=== PATIENT | male | born 1950 | race Caucasian/White ===

== ENCOUNTER 2019-12-01 11:41 | Emergency (ER) | payer OTHER, MEDICARE ==
--- NOTE | 2019-12-01 12:42 | EDM.PDOC ---
ED HPI GENERAL MEDICAL PROBLEM - General Chief Complaint: Respiratory Problem Stated Complaint: RESPIRATORY ISSUES Time Seen by Provider: 12/01/19 12:40 - History of Present Illness INITIAL COMMENTS - FREE TEXT/NARRATIVE: 69-year-old male presents the emergency room with shortness of breath. Patient was [facility] from [facility] because he was not breathing right. The patient has had a worsening cough over the last several days. He was started on Zithromax Sunday at the [facility] and he thinks his cough is actually doing a little bit better but he has some intermittent chest pain. This is left-sided does not radiate and when it occurs does not seem to cause worsening shortness of breath. Patient is unaware if activity makes his pain worse or brings it on. - Related Data Allergies Allergy/AdvReac Type Severity Reaction Status Date / Time No Known Allergies Allergy Verified 12/01/19 11:54 Home Meds: Home Meds Azithromycin [Zithromax] 1 tab PO DAILY 12/01/19 [History] Past Medical History Cardiovascular History: Reports: High Cholesterol Respiratory History: Reports: COPD Gastrointestinal History: Reports: GERD, Other (See Below) Other Gastrointestinal History: Junior's esophagus - Past Surgical History GI Surgical History: Reports: Other (See Below) Other GI Surgeries/Procedures: surgery to esophagus Social & Family History - Tobacco Use Smoking Status *Q: Current Every Day Smoker Years of Tobacco use: 40 Packs/Tins Daily: 1 - Caffeine Use Caffeine Use: Reports: None - Recreational Drug Use Recreational Drug Use: No ED ROS GENERAL - Review of Systems Review Of Systems: See Below Constitutional: Reports: No Symptoms HEENT: Reports: Rhinitis Respiratory: Reports: Cough, Sputum Cardiovascular: Reports: No Symptoms Endocrine: Reports: No Symptoms GI/Abdominal: Reports: No Symptoms : Reports: No Symptoms Musculoskeletal: Reports: No Symptoms Skin: Reports: No Symptoms ED EXAM, GENERAL - Physical Exam Exam: See Below Exam Limited By: No Limitations General Appearance: Alert, No Apparent Distress Ears: Other (Left tympanic membrane is normal right is not visualized because of cerumen external ears and canals otherwise normal) Nose: Normal Inspection, Normal Mucosa, No Blood Throat/Mouth: Normal Inspection, Normal Lips, Normal Gums, Normal Oropharynx, Normal Voice, No Airway Compromise, Other (Missing most of his teeth but no acute changes noted). No: Normal Teeth Head: Atraumatic, Normocephalic Neck: Normal Inspection, Supple, Non-Tender, Full Range of Motion Respiratory/Chest: No Respiratory Distress, Lungs Clear, Normal Breath Sounds Cardiovascular: Regular Rate, Rhythm, No Edema, No Murmur GI/Abdominal: Normal Bowel Sounds, Soft, Non-Tender EKG INTERPRETATION EKG Date: 12/01/19 Rhythm: Other (Bradycardia rate 51) Molt: LAD-Left Molt Deviation P-Wave: Present QRS: Other (Interventricular conduction delay) ST-T: Other (Specific nondiagnostic changes) QT: Normal Comparison: NA - No Prior EKG Course - Vital Signs Last Recorded V/S: Last Vital Signs Temp 36.6 C 12/01/19 11:50 Pulse 68 12/01/19 11:50 Resp 18 12/01/19 11:50 BP 140/61 12/01/19 11:50 Pulse Ox 92 L 12/01/19 11:50 - Orders/Labs/Meds Orders: Active Orders 24 hr Category Date Time Status EKG Documentation Completion [RC] STAT Care 12/01/19 12:55 Active RT Post Treatment Assessment [RC] Click to Edit Care 12/01/19 12:57 Active RT Pre-Treatment Assessment [RC] Click to Edit Care 12/01/19 12:57 Active Labs: Laboratory Tests 12/01/19 12/01/19 Range/Units 13:20 13:20 WBC 11.54 H (4.23-9.07) K/mm3 RBC 4.87 (4.63-6.08) M/mm3 Hgb 14.6 (13.7-17.5) gm/dl Hct 42.3 (40.1-51.0) % MCV 86.9 (79.0-92.2) fl MCH 30.0 (25.7-32.2) pg MCHC 34.5 (32.2-35.5) g/dl RDW Std Deviation 42.6 (35.1-43.9) fL Plt Count 313 (163-337) K/mm3 MPV 9.1 L (9.4-12.3) fl Neutrophils % (Manual) 53 (40-60) % Band Neutrophils % 0 (0-10) % Lymphocytes % (Manual) 36 (20-40) % Atypical Lymphs % 0 % Monocytes % (Manual) 8 (2-10) % Eosinophils % (Manual) 3 (0.8-7.0) % Basophils % (Manual) 0 L (0.2-1.2) Platelet Estimate Adequate RBC Morph Comment Normal Sodium 140 (136-145) mEq/L Potassium 4.1 (3.5-5.1) mEq/L Chloride 103 (98-107) mEq/L Carbon Dioxide 25 (21-32) mEq/L Anion Gap 16.1 H (5-15) BUN 16 (7-18) mg/dL Creatinine 0.9 (0.7-1.3) mg/dL Est Cr Clr Drug Dosing 73.89 mL/min Estimated GFR (MDRD) > 60 (>60) mL/min BUN/Creatinine Ratio 17.8 (14-18) Glucose 93 (80-115) mg/dL Calcium 9.0 (8.5-10.1) mg/dL Total Bilirubin 0.5 (0.2-1.0) mg/dL AST 28 (15-37) U/L ALT 53 (16-63) U/L Alkaline Phosphatase 77 (46-116) U/L Troponin I < 0.017 (0.00-0.056) ng/mL Total Protein 7.7 (6.4-8.2) g/dl Albumin 3.9 (3.4-5.0) g/dl Globulin 3.8 gm/dL Albumin/Globulin Ratio 1.0 (1-2) Meds: Medications Discontinued Medications Generic Name Dose Route Start Last Admin Trade Name Freq PRN Reason Stop Dose Admin Albuterol 0 gm 12/01/19 12:57 12/01/19 13:41 Proventil Hfa INH 12/01/19 12:58 2 puff ONETIME ONE Administration - Re-Assessments/Exams Free Text/Narrative Re-Assessment/Exam: 12/01/19 13:08 Nursing did put in a portable chest x-ray before I saw the patient I do not see any abnormality on this. We will start him on albuterol MDI await labs. 12/01/19 15:06 Bit of improvement with the albuterol. Labs nondiagnostic. Will discharge at this point Departure - Departure Time of Disposition: 15:06 Disposition: DC/Tfer to Hospice - Home 50 Clinical Impression: Bronchitis, Chest pain, atypical - Discharge Information Referrals: Mckayla Lucas MD [Primary Care Provider] - Forms: ED Department Discharge Additional Instructions: Return to the emergency room with any questions problems or worsening symptoms. Finish up your Zithromax, the antibiotic. Use the inhaler 2 puffs every 4 hours while awake. Follow-up with the [facility] clinic and discuss whether you need a heart stress test. Sepsis Event Note - Evaluation Sepsis Screening Result: No Definite Risk - Focused Exam Vital Signs: Vital Signs Temp Pulse Resp BP Pulse Ox 12/01/19 11:50 36.6 C 68 18 140/61 92 L Date Exam was Performed: 12/01/19 Time Exam was Performed: 15:06 - My Orders Last 24 Hours: My Active Orders 12/01/19 12:55 EKG Documentation Completion [RC] STAT 12/01/19 12:57 RT Post Treatment Assessment [RC] Click to Edit RT Pre-Treatment Assessment [RC] Click to Edit - Assessment/Plan Last 24 Hours: My Active Orders 12/01/19 12:55 EKG Documentation Completion [RC] STAT 12/01/19 12:57 RT Post Treatment Assessment [RC] Click to Edit RT Pre-Treatment Assessment [RC] Click to Edit
--- NOTE | 2019-12-01 12:54 | CR ---
Chest: Portable view of the chest was obtained. Comparison: Prior chest x-ray of 06/03/11. Heart size and mediastinum are normal. Lungs are clear and show no acute parenchymal change. Bony structures are grossly intact. Impression: 1. Nothing acute is seen on portable chest x-ray. Diagnostic code #1 This report was dictated in [place] Standard Time
[2019-12-01] MEDS ORDERED: Albuterol 6.7 GM Inhaler INH ONE (12:57)
[2019-12-01 16:40] VITALS: BP 136/66; PULSE 64
== END 2019-12-01 15:10 | disposition hospice, home (50) ==
LOC: JD.ED 11:41
DX: J40 Bronchitis, not specified as acute or chronic (principal); F17.210 Nicotine dependence, cigarettes, uncomplicated
CPT/HCPCS: 36415; 71045; 80053; 84484; 85007; 85027; 93005; 99285; A9270; 93010; 99283

== ENCOUNTER 2020-02-10 08:47 | Day surgery (SDC) | payer OTHER, MEDICARE ==
--- NOTE | 2020-02-10 08:00 | PCM.HP.2 ---
H&P History of Present Illness - General Date of Service: 02/10/20 Admit Problem/Dx: GERD - History of Present Illness Initial Comments - Free Text/Narative: Mr. Reina is a 69 yo man referred from the [place] system regarding his next screening colonoscopy. His last was 10 years ago in [place] and reportedly no abnormalities were noted. He has no current lower GI complaints or concerns. His history is significant for achalasia s/p laparoscopic Heller myotomy with Justin fundoplication in 2009. This helped significantly with symptoms of dysphagia. However, [place] paperwork faxed to us indicates that the patient also has documented Junior esophagus. No upper GI evaluation has been performed in the past 10 years, and the patient does not take any antacid medication. On review, he reports dysphagia and regurgitation with more solid foods and he has to be careful with what he eats. He denies unintentional weight loss. He has a significant smoking history, 1 ppd, and was recently seen in the ER here regarding URI symptoms last month. He completed a course of azithromycin and symptoms have since resolved. He takes no medications for COPD. Recorded: [id number] 01:33PM Recorded: [id number] 01:31PM Weight 210 lb 210 lb BMI Calculated 33.9 33.9 BSA Calculated 2.04 2.04 Temperature 98.7 F Heart Rate 64 Respiration 20 Systolic 149 Diastolic 67 Pain Scale 0 - Related Data Allergies/Adverse Reactions: Allergies Allergy/AdvReac Type Severity Reaction Status Date / Time No Known Allergies Allergy Verified 02/09/20 13:17 Home Medications: Home Meds Mirtazapine [Remeron] 30 mg PO DAILY 02/09/20 [History] Past Medical History HEENT History: Reports: Impaired Vision Cardiovascular History: Reports: High Cholesterol Respiratory History: Reports: COPD, Sleep Apnea Gastrointestinal History: Reports: GERD, Other (See Below) Other Gastrointestinal History: Junior's esophagus, ACHALASIA TO ESOPHAGUS Genitourinary History: Reports: None CAT AND DOG BATHER History: Reports: None Neurological History: Reports: None Psychiatric History: Reports: None Endocrine/Metabolic History: Reports: Obesity/BMI 30+, Vitamin D Deficiency Hematologic History: Reports: None Immunologic History: Reports: None Oncologic (Cancer) History: Reports: None Dermatologic History: Reports: None - Past Surgical History Head Surgeries/Procedures: Reports: None Respiratory Surgical History: Reports: None GI Surgical History: Reports: Colonoscopy, EGD, Other (See Below) Other GI Surgeries/Procedures: surgery to esophagus Female Surgical History: Reports: None Male Surgical History: Reports: None Endocrine Surgical History: Reports: None Neurological Surgical History: Reports: None Musculoskeletal Surgical History: Reports: None Dermatological Surgical History: Reports: None Social & Family History - Tobacco Use Smoking Status *Q: Current Every Day Smoker Years of Tobacco use: 35 Packs/Tins Daily: 1 - Caffeine Use Caffeine Use: Reports: Soda - Recreational Drug Use Recreational Drug Use: No Drug Use in Last 12 Months: No H&P Review of Systems - Review of Systems: Review Of Systems: See Below General: Reports: No Symptoms HEENT: Reports: No Symptoms Pulmonary: Reports: No Symptoms Cardiovascular: Reports: No Symptoms Gastrointestinal: Reports: No Symptoms Genitourinary: Reports: No Symptoms Musculoskeletal: Reports: No Symptoms Skin: Reports: No Symptoms Psychiatric: Reports: No Symptoms Neurological: Reports: No Symptoms Hematologic/Lymphatic: Reports: No Symptoms Immunologic: Reports: No Symptoms Exam - Exam Exam: See Below - Exam General: Alert, Oriented HEENT: Conjunctiva Clear Neck: Supple Lungs: Clear to Auscultation Cardiovascular: Regular Rate GI/Abdominal Exam: Normal Bowel Sounds (Male) Exam: No Hernia Rectal (Males) Exam: Normal Exam Back Exam: Normal Inspection Extremities: Normal Inspection Skin: Warm, Dry Neuro Extensive - Mental Status: Alert, Oriented x3 Psychiatric: Alert, Normal Affect *Q Meaningful Use (ADM) - VTE Risk Assess *Q Each Risk Factor Represents 2 Points: Age 60 - 74 Years Total Score 2 Point Risk Factors: 2 Problem List Initiated/Reviewed/Updated: Yes Orders Last 24hrs: Active Orders 24 hr Category Date Time Status Peripheral IV Care [RC] . DIRECTED Care 02/10/20 07:00 Active Verify Patient Consent Obtain [RC] ASDIRECTED Care 02/10/20 07:00 Active Lactated Ringers [Ringers, Lactated] 1,000 ml Med 02/10/20 07:00 Active IV ASDIRECTED Lidocaine 1%/Sod Bicarbonate [Buffered Lidocaine 1% in Med 02/10/20 07:00 Active NS 8.4%] 0.25 ml IDERM ONETIME PRN Sodium Chloride 0.9% [Saline Flush] Med 02/10/20 07:00 Active 10 ml FLUSH ASDIRECTED PRN Medication Administration Instruction [OM.PC] Routine Oth 02/10/20 07:00 Ordered Peripheral IV Insertion Adult [OM.PC] Routine Oth 02/10/20 07:00 Ordered Medication Orders Lactated Ringer's (Ringers, Lactated) 1,000 mls @ 125 mls/hr IV ASDIRECTED JAZMYN Stop: 02/10/20 23:00 Lidocaine/Sodium Bicarbonate (Buffered Lidocaine 1% In Ns 8.4%) 0.25 ml IDERM ONETIME PRN PRN Reason: Prior to IV Start Stop: 02/10/20 18:00 Sodium Chloride (Saline Flush) 10 ml FLUSH ASDIRECTED PRN PRN Reason: Keep Vein Open Stop: 02/10/20 18:00 Assessment/Plan Comment:: diagnostic EGD, screening colonoscopy - Mortality Measure Prognosis:: Good
[~2020-02-10 08:47] MED LIST: Lactated Ringers 1,000 ML IV SCH; Lidocaine 1%/Sod Bicarbonate in NS 8.4% 1 ML Syringe IDERM PRN; Sodium Chloride 0.9% 10 ML Syringe FLUSH PRN
[2020-02-10] MEDS ORDERED: Propofol 200 MG/20 ML SDV ONE ×2 (09:00→11:15)
[2020-02-10] MEDS ORDERED: fentaNYL 100 MCG/2 ML SDV ONE (09:01)
[2020-02-10] MEDS ORDERED: Albuterol 0.083% 2.5 MG/3 ML Neb Soln NEB ONE (09:31)
--- NOTE | 2020-02-10 09:37 | PCM.PREANE ---
Preanesthetic Assessment - Procedure Proposed Procedure: egd and colonoscopy - Anesthesia/Transfusion/Family Hx Anesthesia History: Prior Anesthesia Without Reaction Family History of Anesthesia Reaction: No Transfusion History: No Prior Transfusion(s) - Review of Systems General: No Symptoms Pulmonary: No Symptoms Cardiovascular: Dyspnea on Exertion Gastrointestinal: Abdominal Pain (epigastric ) Neurological: No Symptoms Other: Reports: Depression, Anxiety - Physical Assessment NPO Status Date: 02/10/20 NPO Status Time: 04:00 Vital Signs: 141/67 59 91-93% 20 97.8 Height: 5 ft 4 in Weight: 95.3 kg ASA Class: 3 Mental Status: Alert & Oriented x3 Airway Class: Mallampati = 2 Dentition: Reports: Missing Tooth/Teeth Thyro-Mental Finger Breadths: 3 Mouth Opening Finger Breadths: 3 ROM/Head Extension: Full Lungs: Clear to Auscultation, Normal Respiratory Effort Cardiovascular: Regular Rate, Regular Rhythm - Allergies Allergies/Adverse Reactions: Allergies Allergy/AdvReac Type Severity Reaction Status Date / Time No Known Allergies Allergy Verified 02/09/20 13:17 - Blood Blood Available: No - Acknowledgements Anesthesia Type Planned: MAC Pt an Appropriate Candidate for the Planned Anesthesia: Yes Alternatives and Risks of Anesthesia Discussed w Pt/Guardian: Yes Pt/Guardian Understands and Agrees with Anesthesia Plan: Yes PreAnesthesia Questionnaire HEENT History: Reports: Impaired Vision Cardiovascular History: Reports: High Cholesterol Respiratory History: Reports: COPD, Sleep Apnea (cpap) Gastrointestinal History: Reports: GERD, Other (See Below) Other Gastrointestinal History: Junior's esophagus, ACHALASIA TO ESOPHAGUS Genitourinary History: Reports: None [employer] PAINTER History: Reports: None Neurological History: Reports: None Psychiatric History: Reports: None, Depression Endocrine/Metabolic History: Reports: Obesity/BMI 30+, Vitamin D Deficiency Hematologic History: Reports: None Immunologic History: Reports: None Oncologic (Cancer) History: Reports: None Dermatologic History: Reports: None - Past Surgical History Head Surgeries/Procedures: Reports: None Respiratory Surgical History: Reports: None GI Surgical History: Reports: Colonoscopy, EGD, Other (See Below) Other GI Surgeries/Procedures: surgery to esophagus Female Surgical History: Reports: None Male Surgical History: Reports: None Endocrine Surgical History: Reports: None Neurological Surgical History: Reports: None Musculoskeletal Surgical History: Reports: None Dermatological Surgical History: Reports: None - History Comment History Comment: also on cholesterol med - SUBSTANCE USE Smoking Status *Q: Current Every Day Smoker Tobacco Use Within Last Twelve Months: Cigarettes Second Hand Smoke Exposure: Yes Days Per Week of Alcohol Use: 1 Recreational Drug Use History: No - HOME MEDS Home Medications: Home Meds Mirtazapine [Remeron] 30 mg PO DAILY 02/09/20 [History] - CURRENT (IN HOUSE) MEDS Current Meds: Current Medications Lactated Ringer's (Ringers, Lactated) 1,000 mls @ 125 mls/hr IV ASDIRECTED JAZMYN Stop: 02/10/20 23:00 Lidocaine/Sodium Bicarbonate (Buffered Lidocaine 1% In Ns 8.4%) 0.25 ml IDERM ONETIME PRN PRN Reason: Prior to IV Start Stop: 02/10/20 18:00 Sodium Chloride (Saline Flush) 10 ml FLUSH ASDIRECTED PRN PRN Reason: Keep Vein Open Stop: 02/10/20 18:00 Discontinued Medications Fentanyl (Sublimaze) Confirm Administered Dose 100 mcg .ROUTE .STK-MED ONE Stop: 02/10/20 09:02 Lactated Ringer's (Ringers, Lactated) 1,000 mls @ 125 mls/hr IV ASDIRECTED JAZMYN Lidocaine/Sodium Bicarbonate (Buffered Lidocaine 1% In Ns 8.4%) 0.25 ml IDERM ONETIME PRN PRN Reason: Prior to IV Start Propofol (Diprivan 20 Ml) Confirm Administered Dose 400 mg .ROUTE .STK-MED ONE Stop: 02/10/20 09:01 Sodium Chloride (Saline Flush) 10 ml FLUSH ASDIRECTED PRN PRN Reason: Keep Vein Open
[2020-02-10] MEDS ORDERED: Glycopyrrolate 0.2 MG/ML SDV ONE (11:22)
[2020-02-10] MEDS ORDERED: Lidocaine 1% 4 ML ONE (11:22)
--- NOTE | 2020-02-10 11:29 | PCM48HPAN ---
Post Anesthesia Note - EVALUATION WITHIN 48HRS OF ANESTHETIC Vital Signs in Normal Range: Yes Patient Participated in Evaluation: Yes Respiratory Function Stable: Yes Airway Patent: Yes Cardiovascular Function Stable: Yes Hydration Status Stable: Yes Pain Control Satisfactory: Yes Nausea and Vomiting Control Satisfactory: Yes Mental Status Recovered: Yes Vital Signs: Last Vital Signs Temp 36.6 C 02/10/20 09:05 Pulse 59 L 02/10/20 09:05 Resp 18 02/10/20 09:05 BP 141/67 H 02/10/20 09:05 Pulse Ox 92 L 02/10/20 09:31
--- NOTE | 2020-02-10 11:30 | PCM.PRNOTE ---
- Free Text/Narrative Note: Date: 02/10/2020 Procedure(s): diagnostic upper endoscopy, screening colonoscopy Indications: history of achalasia s/p Heller myotomy now with symptoms of uncontrolled reflux. Last colonoscopy 10 years ago. Endoscopist: Chava Weathers MD Findings: Normal appearance of duodenum and antrum. The gastric body had some erythema which appeared mild. No evidence of ulcer. No evidence of hiatal hernia. There did not appear to be any intact fundoplication. Short segment gross mucosal changes in the distal esophagus consistent with Junior esophagus noted. No active esophagitis appreciated. Biopsies were obtained. The remainder of the esophagus appeared normal; the standard endoscope traversed the area of narrowing in the distal esophagus that was noted on previous upper GI study with minimal resistance. Multiple polyps were identified in the colon. Detailed report: The patient was taken to the endoscopy suite and placed in left lateral decubitus position. Timeout was performed, and monitored anesthesia care was initiated. With adequate sedation on board, a bite-block was placed and lubricated endoscope inserted into the mouth. The scope was advanced to the second portion of the duodenum, and then slowly withdrawn and mucosal surfaces carefully inspected. The duodenum appeared grossly normal. The pylorus and antrum appeared grossly normal. The proximal body of the stomach did have some mild erythematous changes of the mucosa, but no evidence of polyps or ulcers. On retroflexion of the scope within the stomach, the fundus appeared normal; there did not appear to be evidence of fundoplication from prior Heller myotomy. There was no hiatal hernia appreciated. Scope was then withdrawn into the distal esophagus, there was some gross mucosal changes consistent with short segment Junior esophagus. 2 sample biopsies were obtained with cold forceps at the area of abnormality. No active esophagitis was appreciated. No other esophageal pathology was noted on slow withdrawal of the scope. At this point, attention was turned to colonoscopy. Visual inspection of the anus revealed some prolapsing internal hemorrhoids (grade 2). Digital rectal exam was unremarkable, and the prostate felt normal. The colonoscope was then inserted and advanced all the way to the cecum. There was some redundancy of the colon requiring abdominal maneuvers in order to get the scope to reach the ileocecal valve. The prep was noted to be good. Scope was then slowly withdrawn and mucosal surfaces inspected. A few small polyps were identified along the way, and these were biopsied either with hot forceps with the base of the polyp fulgurated after biopsy, or with a hot snare. All polyps were successfully recovered. There were a few scattered diverticula, most concentrated in the sigmoid colon. There was a small broad-based polyp on 1 of the valves of [place]. This was biopsied in similar fashion to the other after mentioned polyps. Retroflexion of the scope in the rectum revealed just mild hemorrhoidal disease without any additional polyps. The patient tolerated the procedure well. Chava Weathers MD General Surgery
[2020-02-10 11:32] VITALS: PULSE 65
[2020-02-10 11:51] VITALS: BP 122/81
== END 2020-02-10 12:10 | disposition home or self-care (01) ==
LOC: JD.SDS 08:47
PROVIDERS: ATTEND Surgery
DX: Z12.11 Encounter for screening for malignant neoplasm of colon (principal); D12.4 Benign neoplasm of descending colon; D12.5 Benign neoplasm of sigmoid colon; K62.1 Rectal polyp; K21.0 Gastro-esophageal reflux disease with esophagitis; K64.1 Second degree hemorrhoids; K57.30 Diverticulosis of large intestine without perforation or abscess without bleeding; E66.9 Obesity, unspecified; J44.9 Chronic obstructive pulmonary disease, unspecified; F32.9 Major depressive disorder, single episode, unspecified; F17.210 Nicotine dependence, cigarettes, uncomplicated; Z87.19 Personal history of other diseases of the digestive system; Z79.899 Other long term (current) drug therapy; Z68.33 Body mass index [BMI] 33.0-33.9, adult; Z98.890 Other specified postprocedural states
CPT/HCPCS: 43239; 45384; 45385; 94640; J2001; J2704; J3010; J3490; J7120; 00813

== ENCOUNTER 2021-06-26 12:45 | Emergency (ER) | payer MEDICARE, OTHER ==
[2021-06-26 12:57] VITALS: BP 134/53; PULSE 60
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
== END 2021-06-26 13:40 | disposition home or self-care (01) ==
LOC: JD.ED 12:45
DX: L03.116 Cellulitis of left lower limb (principal); J44.9 Chronic obstructive pulmonary disease, unspecified; E66.9 Obesity, unspecified; R60.0 Localized edema; Z68.33 Body mass index [BMI] 33.0-33.9, adult; Z72.0 Tobacco use
CPT/HCPCS: 99283

== ENCOUNTER 2022-07-29 17:44 | Emergency (ER) | payer MEDICARE, OTHER ==
[2022-07-29 17:59] VITALS: BP 151/72; PULSE 68
== END 2022-07-29 19:40 | disposition home or self-care (01) ==
LOC: JD.ED 17:44
DX: S93.402A Sprain of unspecified ligament of left ankle, initial encounter (principal); S97.02XA Crushing injury of left ankle, initial encounter; J44.9 Chronic obstructive pulmonary disease, unspecified; F17.210 Nicotine dependence, cigarettes, uncomplicated; E66.9 Obesity, unspecified; Z68.28 Body mass index [BMI] 28.0-28.9, adult; Z79.899 Other long term (current) drug therapy; W22.8XXA Striking against or struck by other objects, initial encounter
CPT/HCPCS: 29515; 73610-26-LT; 73610-LT; 99283

== ENCOUNTER 2024-07-10 11:40 | Emergency (ER) | payer MEDICARE, OTHER ==
[2024-07-10 12:05] VITALS: BP 123/56; PULSE 50
[2024-07-10] MEDS: Dexamethasone 10 MG/ML SDV IM ONE (13:27)
[2024-07-10] MEDS: traMADol 50 MG Tab PO ONE (13:27)
== END 2024-07-10 14:44 | disposition home or self-care (01) ==
LOC: JD.ED 11:40
DX: M79.604 Pain in right leg (principal); M79.605 Pain in left leg; M54.32 Sciatica, left side; M54.31 Sciatica, right side; J44.9 Chronic obstructive pulmonary disease, unspecified; E66.9 Obesity, unspecified; Z68.27 Body mass index [BMI] 27.0-27.9, adult; F17.210 Nicotine dependence, cigarettes, uncomplicated; Z79.899 Other long term (current) drug therapy
CPT/HCPCS: 72100; 96372; 99283; A9270; J1100

== ENCOUNTER 2025-01-05 07:06 | Emergency (ER) | payer MEDICARE, OTHER ==
[2025-01-05] MEDS: Sodium Chloride 0.9% 1,000 ML IV ONE (08:58)
[2025-01-05] MEDS: Ondansetron 4 MG/2 ML SDV IVPUSH ONE ×2 (09:24→12:40)
[2025-01-05] MEDS: Acetaminophen 325 MG Tab PO ONE (09:25)
[2025-01-05] MEDS: Lactated Ringers 1,000 ML IV ONE (09:25)
[2025-01-05 09:36] LABS: BASOPHILS ABSOLUTE AUTO 0.1 K/mm3 (0.0-0.2); BASOPHILS PERCENT AUTO 0.7 % (0.0-1.0); EOSINOPHILS ABSOLUTE AUTO 0.2 K/mm3 (0.0-0.4); EOSINOPHILS PERCENT AUTO 2.1 % (0.0-6.0); HEMATOCRIT 41.7 % (42.0-52.0); HEMOGLOBIN 14.3 gm/dl (14.0-18.0); IMMATURE GRAN ABSOLUTE AUTO 0.03 K/mm3 (0.00-0.05); IMMATURE GRAN PERCENT AUTO 0.3 % (0.0-0.4); LYMPHOCYTES ABSOLUTE AUTO 3.3 K/mm3 (1.0-4.8); LYMPHOCYTES PERCENT AUTO 30.2 % (24.0-44.0); MEAN CORPUSCULAR HEMOGLOBIN 29.2 pg (28.0-32.0); MEAN CORPUSCULAR HGB CONC 34.3 g/dl (32.0-36.0); MEAN CORPUSCULAR VOLUME 85.3 fl (83.0-99.0); MEAN PLATELET VOLUME 9.9 fl (9.4-12.4); MONOCYTES ABSOLUTE AUTO 0.6 K/mm3 (0.0-0.8); MONOCYTES PERCENT AUTO 5.9 % (0.0-8.0); NEUTROPHILS ABSOLUTE AUTO 6.6 K/mm3 (1.8-7.7); NEUTROPHILS PERCENT AUTO 60.8 % (41.0-71.0); PLATELET COUNT,PLT 297 K/mm3 (150-400); RED BLOOD CELL COUNT 4.89 M/mm3 (4.52-5.90); WHITE BLOOD CELL COUNT,WBC 10.81 K/mm3 (3.9-11.3)
[2025-01-05 10:01] LABS: ALBUMIN 3.7 g/dl (3.4-5.0); ANION GAP 11.3 (5-15); BILIRUBIN TOTAL 0.4 mg/dL (0.2-1.0); CALCIUM 8.5 mg/dL (8.5-10.1); CREATININE 0.9 mg/dL (0.7-1.3); EST CRCL DRUG DOSING (CG) 57.08 mL/min; PROTEIN TOTAL,TP 7.3 g/dl (6.4-8.2)
[2025-01-05 10:04] LABS: POTASSIUM,K 4.3 mEq/L (3.5-5.1)
[2025-01-05 13:19] VITALS: BP 133/98; PULSE 58
== END 2025-01-05 13:00 | disposition home or self-care (01) ==
LOC: JD.ED 07:06
DX: I44.7 Left bundle-branch block, unspecified (principal); E86.9 Volume depletion, unspecified; K92.9 Disease of digestive system, unspecified; R79.89 Other specified abnormal findings of blood chemistry; R11.2 Nausea with vomiting, unspecified; E78.00 Pure hypercholesterolemia, unspecified; E66.9 Obesity, unspecified; F17.200 Nicotine dependence, unspecified, uncomplicated; Z79.899 Other long term (current) drug therapy; Z68.32 Body mass index [BMI] 32.0-32.9, adult
CPT/HCPCS: 36415; 71045; 74018; 80053; 83690; 83735; 83880; 84484; 85025; 87428; 93005; 96361; 96374; 96376; 99285; A9270; J2405; J7120; 93010

== ENCOUNTER 2025-04-24 08:10 | Inpatient (IN) | payer OTHER ==
[2025-04-24] MEDS ORDERED: Sodium Chloride 0.9% 10 ML Syringe FLUSH PRN (08:26)
[2025-04-24 08:41] LABS: BASOPHILS ABSOLUTE AUTO 0.1 K/mm3 (0.0-0.2); BASOPHILS PERCENT AUTO 0.5 % (0.0-1.0); EOSINOPHILS ABSOLUTE AUTO 0.2 K/mm3 (0.0-0.4); EOSINOPHILS PERCENT AUTO 1.7 % (0.0-6.0); HEMATOCRIT 47.8 % (42.0-52.0); HEMOGLOBIN 16.2 gm/dl (14.0-18.0); IMMATURE GRAN ABSOLUTE AUTO 0.03 K/mm3 (0.00-0.05); IMMATURE GRAN PERCENT AUTO 0.3 % (0.0-0.4); LYMPHOCYTES ABSOLUTE AUTO 2.9 K/mm3 (1.0-4.8); LYMPHOCYTES PERCENT AUTO 27.4 % (24.0-44.0); MEAN CORPUSCULAR HEMOGLOBIN 28.3 pg (28.0-32.0); MEAN CORPUSCULAR HGB CONC 33.9 g/dl (32.0-36.0); MEAN CORPUSCULAR VOLUME 83.6 fl (83.0-99.0); MEAN PLATELET VOLUME 9.7 fl (9.4-12.4); MONOCYTES ABSOLUTE AUTO 0.6 K/mm3 (0.0-0.8); NEUTROPHILS ABSOLUTE AUTO 6.7 K/mm3 (1.8-7.7); NEUTROPHILS PERCENT AUTO 64.1 % (41.0-71.0); PLATELET COUNT,PLT 310 K/mm3 (150-400); RED BLOOD CELL COUNT 5.72 M/mm3 (4.52-5.90); WHITE BLOOD CELL COUNT,WBC 10.51 K/mm3 (3.9-11.3)
[2025-04-24 09:04] LABS: INR 1.06; PROTHROMBIN TIME 11.2 SECONDS (9.7-12.0)
[2025-04-24 09:12] LABS: A/G RATIO 1.1 (1-2); ALBUMIN 4.3 g/dl (3.4-5.0); ANION GAP 14.2 (5-15); BILIRUBIN TOTAL 0.5 mg/dL (0.2-1.0); CREATININE 0.9 mg/dL (0.7-1.3); EST CRCL DRUG DOSING (CG) 63.01 mL/min; POTASSIUM,K 4.2 mEq/L (3.5-5.1); PROTEIN TOTAL,TP 8.3 g/dl (6.4-8.2)
[2025-04-24] MEDS ORDERED: Sodium Chloride 0.9% 100 ML IV SCH (11:00)
[2025-04-24] MEDS: Iopamidol 755 Mg/ML 100 ML Bottle IVPUSH ONE (11:07)
[2025-04-24] MEDS: amLODIPine 5 MG Tab PO ONE (11:22)
[2025-04-24] MEDS: Alum Hydrox/Mag Hydrox/Simeth 30 ML, Lidocaine 2% 15 ML PO ONE (12:16)
[2025-04-24] MEDS: Pantoprazole 40 MG Vial IVPUSH ONE (15:28)
[2025-04-24] MEDS: Sucralfate Suspension 1 GM/10 ML Cup PO SCH (15:28)
[2025-04-24] MEDS ORDERED: hydrALAZINE 20 MG/ML SDV IVPUSH PRN (16:20)
[2025-04-24] MEDS: Enoxaparin 40 MG/0.4 ML Syringe SUBCUT SCH (16:32)
[2025-04-24] MEDS: Pantoprazole 40 MG Tab.CR PO SCH (16:33)
[2025-04-24] MEDS: Nicotine 14 MG/24 Hr Patch TRDERM SCH (16:37)
[2025-04-24 16:44] LABS: HEMOGLOBIN A1C 5.7 %
[2025-04-24 18:40] LABS: APPEARANCE,URINE CLEAR (Clear); BILIRUBIN,URINE NEGATIVE (Negative); COLOR,URINE YELLOW (Yellow); GLUCOSE,URINE NEGATIVE (Negative); KETONES,URINE 1+ (Negative); LEUKOCYTE ESTERASE,URINE NEGATIVE (Negative); NITRITE,URINE NEGATIVE (Negative); OCCULT BLOOD,URINE NEGATIVE (Negative); PROTEIN,URINE NEGATIVE (Negative)
[2025-04-25] MEDS: Metoprolol Tartrate 5 MG/5 ML SDV IVPUSH ONE ×2 (00:22→00:55)
[2025-04-25] MEDS: Acetaminophen 325 MG Tab PO PRN (00:38)
[2025-04-25 05:37] LABS: BASOPHILS ABSOLUTE AUTO 0.1 K/mm3 (0.0-0.2); BASOPHILS PERCENT AUTO 0.5 % (0.0-1.0); EOSINOPHILS ABSOLUTE AUTO 0.1 K/mm3 (0.0-0.4); EOSINOPHILS PERCENT AUTO 0.6 % (0.0-6.0); HEMATOCRIT 46.2 % (42.0-52.0); HEMOGLOBIN 15.7 gm/dl (14.0-18.0); IMMATURE GRAN ABSOLUTE AUTO 0.06 K/mm3 (0.00-0.05); IMMATURE GRAN PERCENT AUTO 0.4 % (0.0-0.4); LYMPHOCYTES PERCENT AUTO 26.5 % (24.0-44.0); MEAN CORPUSCULAR HEMOGLOBIN 28.5 pg (28.0-32.0); MEAN PLATELET VOLUME 9.9 fl (9.4-12.4); MONOCYTES PERCENT AUTO 6.8 % (0.0-8.0); NEUTROPHILS ABSOLUTE AUTO 9.9 K/mm3 (1.8-7.7); NEUTROPHILS PERCENT AUTO 65.2 % (41.0-71.0); PLATELET COUNT,PLT 338 K/mm3 (150-400); WHITE BLOOD CELL COUNT,WBC 15.21 K/mm3 (3.9-11.3)
[2025-04-25 06:01] LABS: ALBUMIN 3.7 g/dl (3.4-5.0); ANION GAP 14.8 (5-15); BILIRUBIN TOTAL 0.7 mg/dL (0.2-1.0); BUN/CREATININE RATIO 18.2 (14-18); CALCIUM 9.6 mg/dL (8.5-10.1); CREATININE 1.1 mg/dL (0.7-1.3); EST CRCL DRUG DOSING (CG) 51.56 mL/min; MAGNESIUM 2.2 mg/dL (1.8-2.4); POTASSIUM,K 4.8 mEq/L (3.5-5.1); PROTEIN TOTAL,TP 7.4 g/dl (6.4-8.2)
[2025-04-25] MEDS: Sodium Chloride 0.9% 500 ML IV ONE (08:04)
[2025-04-25] MEDS: Metoprolol Tartrate 25 MG Tab PO SCH (08:13)
[2025-04-25] MEDS ORDERED: amLODIPine 5 MG Tab PO SCH (09:00)
[2025-04-25] MEDS ORDERED: Losartan 25 MG Tab PO SCH (09:00)
[2025-04-25] MEDS: Sodium Chloride 0.9% 1,000 ML IV SCH (16:01)
[2025-04-26 05:38] LABS: BASOPHILS ABSOLUTE AUTO 0.1 K/mm3 (0.0-0.2); BASOPHILS PERCENT AUTO 0.8 % (0.0-1.0); EOSINOPHILS ABSOLUTE AUTO 0.3 K/mm3 (0.0-0.4); EOSINOPHILS PERCENT AUTO 2.7 % (0.0-6.0); IMMATURE GRAN ABSOLUTE AUTO 0.02 K/mm3 (0.00-0.05); IMMATURE GRAN PERCENT AUTO 0.2 % (0.0-0.4); LYMPHOCYTES ABSOLUTE AUTO 4.8 K/mm3 (1.0-4.8); LYMPHOCYTES PERCENT AUTO 46.6 % (24.0-44.0); MEAN CORPUSCULAR HEMOGLOBIN 28.8 pg (28.0-32.0); MEAN CORPUSCULAR VOLUME 84.6 fl (83.0-99.0); MEAN PLATELET VOLUME 10.1 fl (9.4-12.4); MONOCYTES ABSOLUTE AUTO 0.7 K/mm3 (0.0-0.8); MONOCYTES PERCENT AUTO 6.8 % (0.0-8.0); NEUTROPHILS ABSOLUTE AUTO 4.4 K/mm3 (1.8-7.7); NEUTROPHILS PERCENT AUTO 42.9 % (41.0-71.0); PLATELET COUNT,PLT 268 K/mm3 (150-400); RED BLOOD CELL COUNT 4.73 M/mm3 (4.52-5.90)
[2025-04-26 05:39] LABS: HEMOGLOBIN 13.6 gm/dl (14.0-18.0)
[2025-04-26 05:50] LABS: ALBUMIN 3.2 g/dl (3.4-5.0); ANION GAP 11.8 (5-15); BILIRUBIN TOTAL 0.5 mg/dL (0.2-1.0); BUN/CREATININE RATIO 24.4 (14-18); CALCIUM 8.6 mg/dL (8.5-10.1); CREATININE 0.9 mg/dL (0.7-1.3); EST CRCL DRUG DOSING (CG) 63.01 mL/min; POTASSIUM,K 3.8 mEq/L (3.5-5.1); PROTEIN TOTAL,TP 6.5 g/dl (6.4-8.2)
[2025-04-26] MEDS: Ondansetron 4 MG/2 ML SDV IV PRN (08:29)
[2025-04-26] MEDS: Apixaban 5 MG Tab PO SCH (10:16)
[2025-04-27 05:46] LABS: BASOPHILS ABSOLUTE AUTO 0.1 K/mm3 (0.0-0.2); BASOPHILS PERCENT AUTO 0.7 % (0.0-1.0); EOSINOPHILS ABSOLUTE AUTO 0.3 K/mm3 (0.0-0.4); EOSINOPHILS PERCENT AUTO 3.4 % (0.0-6.0); HEMATOCRIT 36.8 % (42.0-52.0); HEMOGLOBIN 12.5 gm/dl (14.0-18.0); IMMATURE GRAN ABSOLUTE AUTO 0.02 K/mm3 (0.00-0.05); IMMATURE GRAN PERCENT AUTO 0.2 % (0.0-0.4); LYMPHOCYTES ABSOLUTE AUTO 5.1 K/mm3 (1.0-4.8); LYMPHOCYTES PERCENT AUTO 55.2 % (24.0-44.0); MEAN CORPUSCULAR HEMOGLOBIN 28.2 pg (28.0-32.0); MEAN CORPUSCULAR VOLUME 83.1 fl (83.0-99.0); MEAN PLATELET VOLUME 9.9 fl (9.4-12.4); MONOCYTES ABSOLUTE AUTO 0.5 K/mm3 (0.0-0.8); MONOCYTES PERCENT AUTO 5.3 % (0.0-8.0); NEUTROPHILS ABSOLUTE AUTO 3.2 K/mm3 (1.8-7.7); NEUTROPHILS PERCENT AUTO 35.2 % (41.0-71.0); PLATELET COUNT,PLT 241 K/mm3 (150-400); RED BLOOD CELL COUNT 4.43 M/mm3 (4.52-5.90); WHITE BLOOD CELL COUNT,WBC 9.17 K/mm3 (3.9-11.3)
[2025-04-27 06:10] LABS: A/G RATIO 0.9 (1-2); ANION GAP 13.2 (5-15); BILIRUBIN TOTAL 0.3 mg/dL (0.2-1.0); BUN/CREATININE RATIO 27.5 (14-18); CALCIUM 8.6 mg/dL (8.5-10.1); CREATININE 0.8 mg/dL (0.7-1.3); EST CRCL DRUG DOSING (CG) 70.89 mL/min; MAGNESIUM 1.9 mg/dL (1.8-2.4); POTASSIUM,K 4.2 mEq/L (3.5-5.1); PROTEIN TOTAL,TP 6.2 g/dl (6.4-8.2)
[2025-04-27] MEDS: Pantoprazole 40 MG Tab.CR PO SCH (06:39)
[2025-04-27 06:49] LABS: SLIDE REVIEW ABNORMAL SMEAR
[2025-04-27 09:24] VITALS: BP 154/58; PULSE 54
== END 2025-04-27 10:42 | disposition home or self-care (01) | DRG 305 ==
LOC: JD.ED 08:10 → JD.MS 14:27
PROVIDERS: ADMIT Family Medicine; ATTEND Family Medicine
DX: I16.9 Hypertensive crisis, unspecified (principal); I10 Essential (primary) hypertension; R07.89 Other chest pain; H54.7 Unspecified visual loss; E78.00 Pure hypercholesterolemia, unspecified; J44.9 Chronic obstructive pulmonary disease, unspecified; Z68.27 Body mass index [BMI] 27.0-27.9, adult; G47.30 Sleep apnea, unspecified; K21.9 Gastro-esophageal reflux disease without esophagitis; F32.A Depression, unspecified; E66.9 Obesity, unspecified; E55.9 Vitamin D deficiency, unspecified; K20.90 Esophagitis, unspecified without bleeding; R11.2 Nausea with vomiting, unspecified; R79.89 Other specified abnormal findings of blood chemistry; F17.200 Nicotine dependence, unspecified, uncomplicated; R73.9 Hyperglycemia, unspecified; I48.91 Unspecified atrial fibrillation; Z86.16 Personal history of COVID-19
CPT/HCPCS: 36415; 71045; 71275; 80053; 83036; 84443; 84484 ×2; 85025; 85379; 85610; 93005 ×2; 99285; A9270 ×3; Q9967; 80061; 81003; 83605; 83735; 87040; 93306; 94760; J1650; J2405; J2470; J3490; J7030

== ENCOUNTER 2025-06-20 08:08 | Emergency (ER) | payer OTHER ==
[2025-06-20 09:12] LABS: BASOPHILS ABSOLUTE AUTO 0.1 K/mm3 (0.0-0.2); BASOPHILS PERCENT AUTO 0.9 % (0.0-1.0); EOSINOPHILS ABSOLUTE AUTO 0.1 K/mm3 (0.0-0.4); EOSINOPHILS PERCENT AUTO 1.3 % (0.0-6.0); IMMATURE GRAN ABSOLUTE AUTO 0.02 K/mm3 (0.00-0.05); IMMATURE GRAN PERCENT AUTO 0.2 % (0.0-0.4); LYMPHOCYTES ABSOLUTE AUTO 3.2 K/mm3 (1.0-4.8); LYMPHOCYTES PERCENT AUTO 29.7 % (24.0-44.0); MEAN PLATELET VOLUME 9.9 fl (9.4-12.4); MONOCYTES ABSOLUTE AUTO 0.5 K/mm3 (0.0-0.8); MONOCYTES PERCENT AUTO 5.1 % (0.0-8.0); NEUTROPHILS ABSOLUTE AUTO 6.7 K/mm3 (1.8-7.7); NEUTROPHILS PERCENT AUTO 62.8 % (41.0-71.0); NRBC ABSOLUTE 0.00 (0.00-0.02); NRBC PERCENT 0.0 % (0.0-0.2); PLATELET COUNT,PLT 279 K/mm3 (150-400); RED BLOOD CELL COUNT 5.12 M/mm3 (4.52-5.90); WHITE BLOOD CELL COUNT,WBC 10.60 K/mm3 (3.9-11.3)
[2025-06-20 09:31] LABS: INR 1.09
[2025-06-20 09:34] LABS: A/G RATIO 1.2 (1-2); ALANINE AMINOTRANSFERASE,ALT 25.0 U/L (16-63); ASPARTATE AMNIOTRANSFERASE,AST 19.0 U/L (15-37); BILIRUBIN TOTAL 0.6 mg/dL (0.2-1.0); BLOOD UREA NITROGEN,BUN 22.0 mg/dL (7-18); CARBON DIOXIDE,CO2 31.0 mEq/L (21-32); CHLORIDE,CL 101.0 mEq/L (98-107); CREATININE 0.9 mg/dL (0.7-1.3); EST CRCL DRUG DOSING (CG) 67.56 mL/min; ESTIMATED GFR 89.0 mL/min (>60); GLUCOSE RANDOM 115.0 mg/dL (70-99); POTASSIUM,K 4.6 mEq/L (3.5-5.1); PROTEIN TOTAL,TP 7.5 g/dl (6.4-8.2); SODIUM,NA 137.0 mEq/L (136-145)
[2025-06-20 13:32] VITALS: BP 147/47; PULSE 43
== END 2025-06-20 13:32 | disposition home or self-care (01) ==
LOC: JD.ED 08:08
DX: K92.0 Hematemesis (principal); Z79.01 Long term (current) use of anticoagulants; E66.9 Obesity, unspecified; Z79.899 Other long term (current) drug therapy; Z86.16 Personal history of COVID-19; Z68.25 Body mass index [BMI] 25.0-25.9, adult
CPT/HCPCS: 36415; 80053; 83690; 83735; 85025; 85610; 86850; 86900; 86901; 93005; 96361; 96374; 96375; 99285; J1308; J2470; J7030

== ENCOUNTER 2025-06-25 09:57 | Emergency (ER) | payer OTHER ==
[2025-06-25 11:03] VITALS: BP 152/55; PULSE 46
== END 2025-06-25 10:50 | disposition home or self-care (01) ==
LOC: JD.ED 09:57
DX: I10 Essential (primary) hypertension (principal); J44.9 Chronic obstructive pulmonary disease, unspecified; I48.91 Unspecified atrial fibrillation; G47.33 Obstructive sleep apnea (adult) (pediatric); Z79.01 Long term (current) use of anticoagulants; K21.9 Gastro-esophageal reflux disease without esophagitis; E78.00 Pure hypercholesterolemia, unspecified; E66.9 Obesity, unspecified; F17.200 Nicotine dependence, unspecified, uncomplicated; Z79.899 Other long term (current) drug therapy; Z86.16 Personal history of COVID-19; Z68.26 Body mass index [BMI] 26.0-26.9, adult
CPT/HCPCS: 99281; 99283

== ENCOUNTER 2025-08-09 10:38 | Emergency (ER) | payer OTHER ==
[2025-08-09] MEDS: Sodium Chloride 0.9% 10 ML Syringe FLUSH PRN (10:58)
[2025-08-09 11:03] LABS: BASOPHILS ABSOLUTE AUTO 0.1 K/mm3 (0.0-0.2); BASOPHILS PERCENT AUTO 0.6 % (0.0-1.0); EOSINOPHILS ABSOLUTE AUTO 0.2 K/mm3 (0.0-0.4); EOSINOPHILS PERCENT AUTO 1.7 % (0.0-6.0); IMMATURE GRAN ABSOLUTE AUTO 0.04 K/mm3 (0.00-0.05); IMMATURE GRAN PERCENT AUTO 0.3 % (0.0-0.4); LYMPHOCYTES ABSOLUTE AUTO 3.3 K/mm3 (1.0-4.8); LYMPHOCYTES PERCENT AUTO 25.1 % (24.0-44.0); MEAN PLATELET VOLUME 9.7 fl (9.4-12.4); MONOCYTES ABSOLUTE AUTO 0.8 K/mm3 (0.0-0.8); MONOCYTES PERCENT AUTO 5.8 % (0.0-8.0); NEUTROPHILS ABSOLUTE AUTO 8.7 K/mm3 (1.8-7.7); NEUTROPHILS PERCENT AUTO 66.5 % (41.0-71.0); NRBC ABSOLUTE 0.00 (0.00-0.02); NRBC PERCENT 0.0 % (0.0-0.2); PLATELET COUNT,PLT 260 K/mm3 (150-400); RED BLOOD CELL COUNT 5.61 M/mm3 (4.52-5.90); WHITE BLOOD CELL COUNT,WBC 13.08 K/mm3 (3.9-11.3)
[2025-08-09 11:35] LABS: A/G RATIO 1.4 (1-2); ALANINE AMINOTRANSFERASE,ALT 31.0 U/L (16-63); ASPARTATE AMNIOTRANSFERASE,AST 18.0 U/L (15-37); BILIRUBIN TOTAL 0.8 mg/dL (0.2-1.0); BLOOD UREA NITROGEN,BUN 12.0 mg/dL (7-18); CARBON DIOXIDE,CO2 31.0 mEq/L (21-32); CHLORIDE,CL 99.0 mEq/L (98-107); CREATININE 0.9 mg/dL (0.7-1.3); EST CRCL DRUG DOSING (CG) 67.56 mL/min; ESTIMATED GFR 89.0 mL/min (>60); GLUCOSE RANDOM 130.0 mg/dL (70-99); POTASSIUM,K 3.9 mEq/L (3.5-5.1); PROTEIN TOTAL,TP 7.9 g/dl (6.4-8.2); SODIUM,NA 138.0 mEq/L (136-145); TROPONIN I HIGH SENSITIVITY 26.0 pg/mL (<=76)
[2025-08-09] MEDS: hydrALAZINE 20 MG/ML SDV IVPUSH ONE (11:41)
[2025-08-09] MEDS: Alum Hydrox/Mag Hydrox/Simeth 30 ML, Lidocaine 2% 15 ML PO ONE (11:41)
[2025-08-09 12:47] LABS: APPEARANCE,URINE CLEAR (Clear); GLUCOSE,URINE NEGATIVE (Negative); OCCULT BLOOD,URINE NEGATIVE (Negative)
[2025-08-09 12:57] LABS: EPITHELIAL CELLS,URINE 0-5 /hpf (0-5)
[2025-08-09 16:30] VITALS: BP 165/63; PULSE 72
== END 2025-08-09 16:30 ==
LOC: JD.ED 10:38
DX: R07.89 Other chest pain (principal); R79.89 Other specified abnormal findings of blood chemistry; R94.31 Abnormal electrocardiogram [ECG] [EKG]; I10 Essential (primary) hypertension; I48.91 Unspecified atrial fibrillation; E78.00 Pure hypercholesterolemia, unspecified; J44.9 Chronic obstructive pulmonary disease, unspecified; K21.9 Gastro-esophageal reflux disease without esophagitis; E66.9 Obesity, unspecified; Z86.16 Personal history of COVID-19; Z79.01 Long term (current) use of anticoagulants; Z79.899 Other long term (current) drug therapy
CPT/HCPCS: 36415; 71045; 80053; 81001; 83690; 83880; 84484; 85025; 93005; 96374; 99285; A9270; J0360; J3490; 93010

== ENCOUNTER 2025-09-08 12:02 | Emergency (ER) | payer OTHER ==
[2025-09-08] MEDS ORDERED: Sodium Chloride 0.9% 10 ML Syringe FLUSH PRN (12:29)
[2025-09-08 13:09] LABS: BASOPHILS ABSOLUTE AUTO 0.1 K/mm3 (0.0-0.2); BASOPHILS PERCENT AUTO 1.2 % (0.0-1.0); EOSINOPHILS ABSOLUTE AUTO 0.3 K/mm3 (0.0-0.4); EOSINOPHILS PERCENT AUTO 3.5 % (0.0-6.0); IMMATURE GRAN ABSOLUTE AUTO 0.02 K/mm3 (0.00-0.05); IMMATURE GRAN PERCENT AUTO 0.2 % (0.0-0.4); LYMPHOCYTES ABSOLUTE AUTO 3.4 K/mm3 (1.0-4.8); LYMPHOCYTES PERCENT AUTO 36.7 % (24.0-44.0); MEAN PLATELET VOLUME 9.4 fl (9.4-12.4); MONOCYTES ABSOLUTE AUTO 0.6 K/mm3 (0.0-0.8); MONOCYTES PERCENT AUTO 6.1 % (0.0-8.0); NEUTROPHILS ABSOLUTE AUTO 4.9 K/mm3 (1.8-7.7); NEUTROPHILS PERCENT AUTO 52.3 % (41.0-71.0); NRBC ABSOLUTE 0.00 (0.00-0.02); NRBC PERCENT 0.0 % (0.0-0.2); PLATELET COUNT,PLT 234 K/mm3 (150-400); RED BLOOD CELL COUNT 5.25 M/mm3 (4.52-5.90); WHITE BLOOD CELL COUNT,WBC 9.30 K/mm3 (3.9-11.3)
[2025-09-08 13:34] LABS: A/G RATIO 1.0 (1-2); ALANINE AMINOTRANSFERASE,ALT 23.0 U/L (16-63); ASPARTATE AMNIOTRANSFERASE,AST 24.0 U/L (15-37); BILIRUBIN TOTAL 0.6 mg/dL (0.2-1.0); BLOOD UREA NITROGEN,BUN 17.0 mg/dL (7-18); CARBON DIOXIDE,CO2 24.0 mEq/L (21-32); CHLORIDE,CL 101.0 mEq/L (98-107); CREATININE 0.8 mg/dL (0.7-1.3); EST CRCL DRUG DOSING (CG) 70.89 mL/min; ESTIMATED GFR 92.0 mL/min (>60); GLUCOSE RANDOM 100.0 mg/dL (70-99); POTASSIUM,K 4.2 mEq/L (3.5-5.1); PROTEIN TOTAL,TP 7.6 g/dl (6.4-8.2); SODIUM,NA 135.0 mEq/L (136-145)
[2025-09-08] MEDS: Labetalol 100 MG/20 ML MDV IVPUSH ONE ×2 (13:44→15:57)
[2025-09-08 16:41] VITALS: BP 159/77; PULSE 60
== END 2025-09-08 16:47 | disposition home or self-care (01) ==
LOC: JD.ED 12:02
DX: I10 Essential (primary) hypertension (principal); I48.91 Unspecified atrial fibrillation; E78.00 Pure hypercholesterolemia, unspecified; Z95.0 Presence of cardiac pacemaker; J44.9 Chronic obstructive pulmonary disease, unspecified; K21.9 Gastro-esophageal reflux disease without esophagitis; Z86.16 Personal history of COVID-19; Z79.01 Long term (current) use of anticoagulants; Z79.899 Other long term (current) drug therapy
CPT/HCPCS: 36415; 71046; 80053; 83690; 84484; 85025; 86140; 93005; 96361; 96374; 96375; 96376; 99284; A9270; J1920; J2765; J7030; 93010

== ENCOUNTER 2025-10-12 15:16 | Inpatient (IN) | payer OTHER ==
[2025-10-12] MEDS: Ondansetron 4 MG/2 ML SDV IVPUSH ONE (16:07)
[2025-10-12 16:11] LABS: BASOPHILS ABSOLUTE AUTO 0.1 K/mm3 (0.0-0.2); BASOPHILS PERCENT AUTO 0.5 % (0.0-1.0); EOSINOPHILS ABSOLUTE AUTO 0.1 K/mm3 (0.0-0.4); EOSINOPHILS PERCENT AUTO 1.2 % (0.0-6.0); IMMATURE GRAN ABSOLUTE AUTO 0.04 K/mm3 (0.00-0.05); IMMATURE GRAN PERCENT AUTO 0.3 % (0.0-0.4); LYMPHOCYTES ABSOLUTE AUTO 2.9 K/mm3 (1.0-4.8); LYMPHOCYTES PERCENT AUTO 23.9 % (24.0-44.0); MEAN PLATELET VOLUME 9.5 fl (9.4-12.4); MONOCYTES ABSOLUTE AUTO 0.8 K/mm3 (0.0-0.8); MONOCYTES PERCENT AUTO 6.3 % (0.0-8.0); NEUTROPHILS ABSOLUTE AUTO 8.1 K/mm3 (1.8-7.7); NEUTROPHILS PERCENT AUTO 67.8 % (41.0-71.0); NRBC ABSOLUTE 0.00 (0.00-0.02); NRBC PERCENT 0.0 % (0.0-0.2); PLATELET COUNT,PLT 264 K/mm3 (150-400); RED BLOOD CELL COUNT 5.30 M/mm3 (4.52-5.90); WHITE BLOOD CELL COUNT,WBC 11.94 K/mm3 (3.9-11.3)
[2025-10-12] MEDS: Iopamidol 612 MG/ML 100 ML Bottle IVPUSH ONE (16:22)
[2025-10-12] MEDS: Sodium Chloride 0.9% 10 ML Syringe FLUSH PRN (16:22)
[2025-10-12 16:36] LABS: A/G RATIO 1.0 (1-2); ALANINE AMINOTRANSFERASE,ALT 21.0 U/L (16-63); ASPARTATE AMNIOTRANSFERASE,AST 20.0 U/L (15-37); BILIRUBIN TOTAL 0.7 mg/dL (0.2-1.0); BLOOD UREA NITROGEN,BUN 18.0 mg/dL (7-18); CARBON DIOXIDE,CO2 33.0 mEq/L (21-32); CHLORIDE,CL 96.0 mEq/L (98-107); CREATININE 1.0 mg/dL (0.7-1.3); EST CRCL DRUG DOSING (CG) 58.76 mL/min; ESTIMATED GFR 78.0 mL/min (>60); GLUCOSE RANDOM 138.0 mg/dL (70-99); POTASSIUM,K 4.3 mEq/L (3.5-5.1); PROTEIN TOTAL,TP 8.2 g/dl (6.4-8.2); SODIUM,NA 135.0 mEq/L (136-145)
[2025-10-12 16:41] LABS: TROPONIN I HIGH SENSITIVITY 162.0 pg/mL (<=76)
[2025-10-12 17:42] LABS: APPEARANCE,URINE CLEAR (Clear); GLUCOSE,URINE NEGATIVE (Negative); OCCULT BLOOD,URINE 2+ (Negative)
[2025-10-12 17:47] LABS: EPITHELIAL CELLS,URINE 0-5 /hpf (0-5)
[2025-10-12] MEDS: Labetalol 100 MG/20 ML MDV IVPUSH ONE (18:48)
[2025-10-12 20:10] LABS: TSH 1.79 uIU/mL (0.358-3.74)
[2025-10-13 08:07] VITALS: PULSE 61
[2025-10-13 08:51] LABS: BASOPHILS ABSOLUTE AUTO 0.1 K/mm3 (0.0-0.2); BASOPHILS PERCENT AUTO 0.4 % (0.0-1.0); EOSINOPHILS ABSOLUTE AUTO 0.1 K/mm3 (0.0-0.4); EOSINOPHILS PERCENT AUTO 0.3 % (0.0-6.0); IMMATURE GRAN ABSOLUTE AUTO 0.09 K/mm3 (0.00-0.05); IMMATURE GRAN PERCENT AUTO 0.5 % (0.0-0.4); LYMPHOCYTES ABSOLUTE AUTO 3.1 K/mm3 (1.0-4.8); LYMPHOCYTES PERCENT AUTO 18.1 % (24.0-44.0); MEAN PLATELET VOLUME 9.8 fl (9.4-12.4); MONOCYTES ABSOLUTE AUTO 0.9 K/mm3 (0.0-0.8); MONOCYTES PERCENT AUTO 5.3 % (0.0-8.0); NEUTROPHILS ABSOLUTE AUTO 12.7 K/mm3 (1.8-7.7); NEUTROPHILS PERCENT AUTO 75.4 % (41.0-71.0); NRBC ABSOLUTE 0.00 (0.00-0.02); NRBC PERCENT 0.0 % (0.0-0.2); PLATELET COUNT,PLT 330 K/mm3 (150-400); RED BLOOD CELL COUNT 5.23 M/mm3 (4.52-5.90); WHITE BLOOD CELL COUNT,WBC 16.89 K/mm3 (3.9-11.3)
[2025-10-13 09:24] LABS: A/G RATIO 1.0 (1-2); ALANINE AMINOTRANSFERASE,ALT 17.0 U/L (16-63); ASPARTATE AMNIOTRANSFERASE,AST 20.0 U/L (15-37); BILIRUBIN TOTAL 0.6 mg/dL (0.2-1.0); BLOOD UREA NITROGEN,BUN 25.0 mg/dL (7-18); CARBON DIOXIDE,CO2 26.0 mEq/L (21-32); CHLORIDE,CL 98.0 mEq/L (98-107); CHOLESTEROL HDL 37.0 mg/dL (40-59); CHOLESTEROL LDL DIRECT 162.0 mg/dL (<100); CHOLESTEROL TOTAL 272.0 mg/dL (<200); CREATININE 1.0 mg/dL (0.7-1.3); EST CRCL DRUG DOSING (CG) 58.76 mL/min; ESTIMATED GFR 78.0 mL/min (>60); GLUCOSE RANDOM 146.0 mg/dL (70-99); POTASSIUM,K 4.2 mEq/L (3.5-5.1); PROTEIN TOTAL,TP 7.6 g/dl (6.4-8.2); SODIUM,NA 134.0 mEq/L (136-145)
[2025-10-13 09:44] VITALS: BP 127/60
== END 2025-10-13 16:30 | disposition home or self-care (01) | DRG 281 ==
LOC: JD.ED 15:16 → JD.MS 19:24
PROVIDERS: ADMIT Family Medicine; ATTEND Family Medicine
DX: I21.A1 Myocardial infarction type 2 (principal); F03.93 Unspecified dementia, unspecified severity, with mood disturbance; I16.1 Hypertensive emergency; Z66 Do not resuscitate; H54.7 Unspecified visual loss; I48.91 Unspecified atrial fibrillation; E78.00 Pure hypercholesterolemia, unspecified; J44.9 Chronic obstructive pulmonary disease, unspecified; K21.9 Gastro-esophageal reflux disease without esophagitis; N42.9 Disorder of prostate, unspecified; D49.6 Neoplasm of unspecified behavior of brain; R79.89 Other specified abnormal findings of blood chemistry; G47.33 Obstructive sleep apnea (adult) (pediatric); K20.90 Esophagitis, unspecified without bleeding; F32.A Depression, unspecified; E66.9 Obesity, unspecified; E55.9 Vitamin D deficiency, unspecified; E86.0 Dehydration; Z86.16 Personal history of COVID-19; Z90.49 Acquired absence of other specified parts of digestive tract; Z79.01 Long term (current) use of anticoagulants; Z68.25 Body mass index [BMI] 25.0-25.9, adult; Z79.899 Other long term (current) drug therapy; Z95.0 Presence of cardiac pacemaker; Z87.891 Personal history of nicotine dependence
CPT/HCPCS: 36415; 70450; 70450-26; 71045; 71045-26; 74177; 74177-26; 80053; 80061; 81001; 82024; 82533; 83036; 83690; 83735; 84146; 84305; 84443; 84484; 85025; 93005; 93010; 96361; 96374; 96375; 97116-GP; 97162-GP; 97530-GP; 99223; 99285; 99285-25; A9270-GY; J1920; J2405; J7030; Q9967

== ENCOUNTER 2025-11-07 16:55 | Emergency (ER) | payer OTHER ==
[2025-11-07 17:24] LABS: BASOPHILS ABSOLUTE AUTO 0.1 K/mm3 (0.0-0.2); BASOPHILS PERCENT AUTO 0.6 % (0.0-1.0); EOSINOPHILS ABSOLUTE AUTO 0.2 K/mm3 (0.0-0.4); EOSINOPHILS PERCENT AUTO 1.8 % (0.0-6.0); IMMATURE GRAN ABSOLUTE AUTO 0.27 K/mm3 (0.00-0.05); IMMATURE GRAN PERCENT AUTO 2.5 % (0.0-0.4); LYMPHOCYTES ABSOLUTE AUTO 4.0 K/mm3 (1.0-4.8); LYMPHOCYTES PERCENT AUTO 36.3 % (24.0-44.0); MEAN PLATELET VOLUME 9.3 fl (9.4-12.4); MONOCYTES ABSOLUTE AUTO 0.6 K/mm3 (0.0-0.8); MONOCYTES PERCENT AUTO 5.2 % (0.0-8.0); NEUTROPHILS ABSOLUTE AUTO 5.9 K/mm3 (1.8-7.7); NEUTROPHILS PERCENT AUTO 53.6 % (41.0-71.0); NRBC ABSOLUTE 0.06 (0.00-0.02); NRBC PERCENT 0.5 % (0.0-0.2); PLATELET COUNT,PLT 331 K/mm3 (150-400); RED BLOOD CELL COUNT 1.78 M/mm3 (4.52-5.90); WHITE BLOOD CELL COUNT,WBC 10.93 K/mm3 (3.9-11.3)
[2025-11-07 17:43] LABS: INR 1.19
[2025-11-07 17:45] LABS: A/G RATIO 1.1 (1-2); ALANINE AMINOTRANSFERASE,ALT 19.0 U/L (16-63); ASPARTATE AMNIOTRANSFERASE,AST 15.0 U/L (15-37); BILIRUBIN TOTAL 0.4 mg/dL (0.2-1.0); BLOOD UREA NITROGEN,BUN 37.0 mg/dL (7-18); CARBON DIOXIDE,CO2 25.0 mEq/L (21-32); CHLORIDE,CL 104.0 mEq/L (98-107); CREATININE 1.2 mg/dL (0.7-1.3); EST CRCL DRUG DOSING (CG) 48.96 mL/min; ESTIMATED GFR 63.0 mL/min (>60); GLUCOSE RANDOM 155.0 mg/dL (70-99); PHOSPHORUS 3.8 mg/dL (2.6-4.7); POTASSIUM,K 4.3 mEq/L (3.5-5.1); PROTEIN TOTAL,TP 6.5 g/dl (6.4-8.2); SODIUM,NA 137.0 mEq/L (136-145)
[2025-11-07 17:48] LABS: LACTIC ACID 1.9 mmol/L (0.4-2.0)
[2025-11-07] MEDS: Iopamidol 755 Mg/ML 100 ML Bottle IVPUSH ONE (17:52)
[2025-11-07 18:11] LABS: ETHANOL BLOOD MEDICAL 0.0 gm% (0.00)
[2025-11-07] MEDS: Pantoprazole 80 MG in Sodium Chloride 0.9% 10 ML IVPUSH ONE (18:20)
[2025-11-07] MEDS: Sodium Chloride 0.9% 10 ML Syringe FLUSH PRN (18:24)
[2025-11-07 22:45] VITALS: BP 157/65; PULSE 61
== END 2025-11-07 21:55 ==
LOC: JD.ED 16:55
DX: D64.9 Anemia, unspecified (principal); K92.2 Gastrointestinal hemorrhage, unspecified; G93.9 Disorder of brain, unspecified; R79.89 Other specified abnormal findings of blood chemistry; I48.91 Unspecified atrial fibrillation; E78.00 Pure hypercholesterolemia, unspecified; J44.9 Chronic obstructive pulmonary disease, unspecified; K21.9 Gastro-esophageal reflux disease without esophagitis; E66.9 Obesity, unspecified; Z86.16 Personal history of COVID-19; Z79.01 Long term (current) use of anticoagulants; Z79.899 Other long term (current) drug therapy; Z68.26 Body mass index [BMI] 26.0-26.9, adult
CPT/HCPCS: 36415; 36430; 70450; 71045; 72125; 72191; 74175; 80053; 80307; 82140; 82272; 83605; 83735; 83880; 84100; 84484; 85025; 85610; 86850; 86900; 86901; 86922; 93005; 96365; 96366; 99285; A4216; J2470; P9016; Q9967